=== PATIENT | male | born 1950 | race Caucasian/White ===

== ENCOUNTER 2017-06-19 18:51 | Inpatient (IN) | payer OTHER ==
[~2017-06-19] VITALS: Ht 182.9 cm; Wt 90.0 kg
[~2017-06-19 18:51] MED LIST: ALDACTONE100 MG PO; ALDACTONE25 MG PO; Atarax,Vistaril PO; Ativan IV; CHRONULAC,CEPHU30 ML PO; COMPAZINE10 MG PO; DIPHENHYDRAMINE50 M1 PO; Folvite PO; GENERLAC10 GM/15 M; HYDROXYZINE PAM50 MG PO; INDERAL10 MG PO; INDERAL20 MG PO; KENALOG,ARISTOC80 GM TP; LODINE400 MG PO; Lactulose PO; Lovenox SC; NACL IV; OMEPRAZOLE20 MG PO; PAIN PILL; PRILOSEC40 MG PO; PROPRANOLOL HCL10 MG PO; Protonix PO; QUETIAPINE FUM100 MG PO; SEROQUEL100 MG PO; SEROQUEL12.5 MG PO; SPIRONOLACTONE100 MG PO; SPIRONOLACTONE25 MG PO; TRAZODONE HCL50 MG PO; Theragran PO; Thiamine,Vitamin B1 PO; Ultram PO; XIFAXAN550 MG PO; [UNRECOGNIZED DRUG - OTHER] IV
[2017-06-19 20:15] LABS: HEMATOCRIT 43.9 % (38.0-50.0); MCH 34.3 PG (29.0-34.0); MCHC 35.8 G/DL (30.0-36.0); MCV 95.9 FL (86-99); MEAN PLAT.VOLUME 9.3 uM^3 (9.0-12.4); PLATELET COUNT 157 K/uL (156-360); RBC DIS.WIDTH-CV 13.6 % (11.8-14.6); RBC DIS.WIDTH-SD 47.9 % (39-53); RED BLOOD COUNT 4.58 M/uL (4.00-5.50)
[2017-06-19 20:39] LABS: CHLORIDE 101 mEq/L (99-109); POTASSIUM 4.8 mEq/L (3.7-5.4); SODIUM 140 mEq/L (136-147)
[2017-06-19 20:41] LABS: GLUCOSE 80 mg/dL (70-99)
[2017-06-19 20:42] LABS: ANION GAP 26 MEQ/L (2-14)
[2017-06-19 20:43] LABS: TOTAL BILIRUBIN 0.5 mg/dL (0.0-1.0)
[2017-06-19 20:44] LABS: ALKALINE PHOSPHATASE 90 IU/L (3-129)
[2017-06-19 20:45] LABS: GFR ESTIMATE (CALCULATED) 50 mL/min/
[2017-06-19 20:46] LABS: UREA NITROGEN (BUN) 29 mg/dL (9-23)
[2017-06-19 20:48] LABS: LIPASE 961 U/L (1.0-51.0)
[2017-06-20] MEDS ORDERED: TACROLIMUS ANHYD1 MG PO ×2 (00:08→17:41)
[2017-06-20] MEDS ORDERED: LO-DOSE ASPIRIN81 M2 PO (00:09)
[2017-06-20] MEDS ORDERED: CARDIZEM CD120 M1 PO (00:09)
[2017-06-20] MEDS ORDERED: ONE-A-DAY ESSE1 EAC1 PO (00:09)
[2017-06-20] MEDS ORDERED: OMEPRAZOLE20 MG PO (00:09)
[2017-06-20] MEDS ORDERED: IRON325 M1 PO (00:10)
[2017-06-20 06:22] LABS: BASOPHIL COUNT 0.1 K/uL (0-0.1); EOSINOPHIL (%) 0.8 % (0-5); EOSINOPHIL COUNT 0.1 K/uL (0-0.3); HEMATOCRIT 39.7 % (38.0-50.0); IMMATURE GRANULOCYTE (%) 0.8 % (0.0-0.7); IMMATURE GRANULOCYTE COUNT 0.1 K/uL; INSTRUMENT ABS NEUTROPHIL CT 4.2 K/uL; MCHC 35.5 G/DL (30.0-36.0); MCV 95.7 FL (86-99); MEAN PLAT.VOLUME 9.3 uM^3 (9.0-12.4); MONOCYTE (%) 10.3 % (3-12); MONOCYTE COUNT 0.6 K/uL (0-0.8); NEUTROPHIL (%) 71.3 % (45-76); NEUTROPHIL COUNT 4.2 K/uL (1.8-6.4); PLATELET COUNT 132 K/uL (156-360); RBC DIS.WIDTH-CV 13.7 % (11.8-14.6); RBC DIS.WIDTH-SD 47.7 % (39-53); RED BLOOD COUNT 4.15 M/uL (4.00-5.50); WHITE BLOOD COUNT 5.9 K/uL (4.1-10.2)
[2017-06-20 07:38] LABS: CHLORIDE 106 mEq/L (99-109); POTASSIUM 4.3 mEq/L (3.7-5.4); SODIUM 140 mEq/L (136-147)
[2017-06-20 07:40] LABS: GLUCOSE 61 mg/dL (70-99)
[2017-06-20 07:41] LABS: ANION GAP 20 MEQ/L (2-14)
[2017-06-20 07:43] LABS: ALKALINE PHOSPHATASE 80 IU/L (3-129)
[2017-06-20 07:44] LABS: GFR ESTIMATE (CALCULATED) > 59 mL/min/
[2017-06-20 07:45] LABS: TOTAL BILIRUBIN 0.7 mg/dL (0.0-1.0)
[2017-06-20 08:12] LABS: UREA NITROGEN (BUN) 25 mg/dL (9-23)
[2017-06-20 12:08] VITALS: BP 149/94
[2017-06-20 12:36] LABS: POINT-OF-CARE METER ID UU13113747
[2017-06-20 14:30] VITALS: BP 151/91
[2017-06-20 16:48] LABS: ADD MIUA? YES; BILIRUBIN NEGATIVE; BLOOD NEGATIVE; COLOR YELLOW ((YELLOW)); GLUCOSE (STRIP) NEGATIVE; KETONES 80; LEUKOCYTES NEGATIVE; NITRITE NEGATIVE; PROTEIN (STRIP) 30; UROBILINOGEN 0.2 MG/DL (0.2-1.0)
[2017-06-20 17:41] LABS: BACTERIA NONE SEEN /HPF; EPITHELIAL CELLS NONE SEEN /HPF; HYALINE CASTS 0-5 /LPF; MUCUS TRACE /LPF; RED BLOOD CELLS 0-5 /HPF (0-5); WHITE BLOOD CELLS 0-5 /HPF (0-5)
[2017-06-20] MEDS ORDERED: CARTIA XT240 MG PO (17:41)
[2017-06-20] MEDS ORDERED: LOSARTAN POTASS25 MG PO (17:41)
[2017-06-20 18:49] LABS: ANION GAP 17 MEQ/L (2-14); CHLORIDE 104 MEQ/L (99-109); GFR ESTIMATE (CALCULATED) > 59 mL/min/; POTASSIUM 3.9 MEQ/L (3.7-5.4); SAMPLE HEMOLYSIS CHECK 0; SAMPLE ICTERIC CHECK 0; SAMPLE LIPEMIA CHECK 0; SODIUM 138 MEQ/L (136-147); UREA NITROGEN (BUN) 22 mg/dL (9-23)
[2017-06-20 18:50] LABS: GLUCOSE 157 mg/dL (70-99)
[2017-06-20 19:53] LABS: C DIFF TOXIN POSITIVE (NEGATIVE)
[2017-06-20 20:01] VITALS: BP 158/83
[2017-06-20 20:25] LABS: PROBE CHECK PASS
[2017-06-20 23:21] VITALS: BP 153/80
[2017-06-21 03:57] VITALS: BP 148/85
[2017-06-21 06:33] LABS: ANION GAP 10 MEQ/L (2-14); CHLORIDE 107 MEQ/L (99-109); GFR ESTIMATE (CALCULATED) > 59 mL/min/; GLUCOSE 134 mg/dL (70-99); MAGNESIUM 1.6 mg/dl (1.3-2.7); POTASSIUM 3.8 MEQ/L (3.7-5.4); SAMPLE HEMOLYSIS CHECK 0; SAMPLE ICTERIC CHECK 0; SAMPLE LIPEMIA CHECK 0; SODIUM 140 MEQ/L (136-147); UREA NITROGEN (BUN) 16 mg/dL (9-23)
[2017-06-21 06:35] LABS: EOSINOPHIL (%) 3.9 % (0-5); EOSINOPHIL COUNT 0.1 K/uL (0-0.3); HEMATOCRIT 35.4 % (38.0-50.0); IMMATURE GRANULOCYTE (%) 0.4 % (0.0-0.7); INSTRUMENT ABS NEUTROPHIL CT 1.3 K/uL; LYMPHOCYTE COUNT 0.6 K/uL (1.0-2.8); MCH 34.2 PG (29.0-34.0); MCHC 35.6 G/DL (30.0-36.0); MCV 96.2 FL (86-99); MONOCYTE (%) 13.1 % (3-12); MONOCYTE COUNT 0.3 K/uL (0-0.8); NEUTROPHIL (%) 56.4 % (45-76); NEUTROPHIL COUNT 1.3 K/uL (1.8-6.4); NRBC (%) 1.3 /100 WBC (0-0); RBC DIS.WIDTH-CV 13.9 % (11.8-14.6); RBC DIS.WIDTH-SD 49.4 % (39-53); RED BLOOD COUNT 3.68 M/uL (4.00-5.50); WHITE BLOOD COUNT 2.3 K/uL (4.1-10.2)
[2017-06-21 06:47] LABS: MEAN PLAT.VOLUME 9.4 uM^3 (9.0-12.4); PLAT.SUFFICIENCY DECREASED
[2017-06-21 06:49] LABS: PLATELET COUNT 85 K/uL (156-360)
[2017-06-21 08:00] VITALS: BP 157/85
[2017-06-21 12:46] VITALS: BP 138/79
[2017-06-21 13:27] LABS: POINT-OF-CARE METER ID UU14188625
[2017-06-21 15:54] VITALS: BP 167/69
[2017-06-21 17:44] LABS: POINT-OF-CARE METER ID UU13113717
[2017-06-21 20:16] VITALS: BP 155/82
[2017-06-21 23:54] VITALS: BP 150/86
[2017-06-22 03:39] VITALS: BP 154/76
[2017-06-22 07:47] VITALS: BP 144/84
[2017-06-22 08:40] LABS: HEMATOCRIT 36.7 % (38.0-50.0); MCH 35.6 PG (29.0-34.0); MCHC 37.1 G/DL (30.0-36.0); MCV 96.1 FL (86-99); PLATELET COUNT 67 K/uL (156-360); RBC DIS.WIDTH-CV 13.8 % (11.8-14.6); RBC DIS.WIDTH-SD 48.1 % (39-53); RED BLOOD COUNT 3.82 M/uL (4.00-5.50)
[2017-06-22 08:59] LABS: ALKALINE PHOSPHATASE 62 IU/L (3-129); ANION GAP 8 MEQ/L (2-14); CHLORIDE 110 MEQ/L (99-109); GFR ESTIMATE (CALCULATED) > 59 mL/min/; POTASSIUM 3.5 MEQ/L (3.7-5.4); SAMPLE HEMOLYSIS CHECK 0; SAMPLE ICTERIC CHECK 0; SAMPLE LIPEMIA CHECK 0; SODIUM 142 MEQ/L (136-147); TOTAL BILIRUBIN 0.7 MG/DL (0.0-1.0); UREA NITROGEN (BUN) 7 mg/dL (9-23)
[2017-06-22 09:01] LABS: GLUCOSE 94 mg/dL (70-99)
[2017-06-22 09:08] LABS: WHITE BLOOD COUNT 1.9 K/uL (4.1-10.2)
[2017-06-22 10:03] LABS: EOSINOPHIL (%) 5.3 % (0-5); EOSINOPHIL COUNT 0.1 K/uL (0-0.3); IMMATURE GRANULOCYTE (%) 0.5 % (0.0-0.7); LYMPHOCYTE COUNT 0.5 K/uL (1.0-2.8); MONOCYTE (%) 13.3 % (3-12); MONOCYTE COUNT 0.3 K/uL (0-0.8); NEUTROPHIL (%) 50.6 % (45-76)
[2017-06-22 11:14] VITALS: BP 162/91
[2017-06-22 12:13] LABS: POINT-OF-CARE METER ID UU14188625
[2017-06-22 13:49] LABS: INTERNAL CONTROL VALID? YES
[2017-06-22 15:07] VITALS: BP 137/72
[2017-06-22 17:35] LABS: POINT-OF-CARE METER ID UU14188625
[2017-06-23] VITALS: BP 158/79
[2017-06-23 00:10] LABS: POINT-OF-CARE METER ID UU14188625
[2017-06-23 05:24] LABS: INTER. NORMALIZED RATIO 0.9; PROTHROMBIN TIME 9.6 SEC (10.2-12.9)
[2017-06-23 05:41] LABS: PTT 19.5 SEC (25-37)
[2017-06-23 05:58] LABS: POINT-OF-CARE METER ID UU13113717
[2017-06-23 07:45] VITALS: BP 122/79
[2017-06-23 08:30] LABS: ANION GAP 7 MEQ/L (2-14); CHLORIDE 110 MEQ/L (99-109); POTASSIUM 3.6 MEQ/L (3.7-5.4); SAMPLE HEMOLYSIS CHECK 0; SAMPLE ICTERIC CHECK 0; SAMPLE LIPEMIA CHECK 0; SODIUM 141 MEQ/L (136-147)
[2017-06-23 08:36] LABS: GFR ESTIMATE (CALCULATED) > 59 mL/min/; GLUCOSE 100 mg/dL (70-99); UREA NITROGEN (BUN) 7 mg/dL (9-23)
[2017-06-23 08:50] LABS: HEMATOCRIT 36.7 % (38.0-50.0); MCH 35.4 PG (29.0-34.0); MCHC 36.2 G/DL (30.0-36.0); MCV 97.6 FL (86-99); MEAN PLAT.VOLUME 9.8 uM^3 (9.0-12.4); PLATELET COUNT 66 K/uL (156-360); RBC DIS.WIDTH-CV 14.3 % (11.8-14.6); RBC DIS.WIDTH-SD 51.2 % (39-53); RED BLOOD COUNT 3.76 M/uL (4.00-5.50)
[2017-06-23] MEDS ORDERED: PRAZOSIN HCL1 MG PO (10:36)
[2017-06-23] MEDS ORDERED: MIRTAZAPINE30 MG PO (10:36)
[2017-06-23] MEDS ORDERED: VANCOMYCIN HCL125 MG PO (10:36)
[2017-06-23] MEDS ORDERED: FOLIC ACID1 MG PO (10:36)
== END 2017-06-23 13:20 | disposition home or self-care (01) | DRG 439 ==
LOC: EME 18:51 → 5SOUTH 06-20 01:55 → EDOF 06-20 01:55 → 5SOUTH 06-20 13:51
PROVIDERS: Hospitalist; Internal Medicine; Nurse Practitioner Adult Health; Physician Assistant; Student in an Organized Health Care Education/Training Program
DX: K85.20 Alcohol induced acute pancreatitis without necrosis or infection (principal); A04.7 Enterocolitis due to Clostridium difficile; N17.9 Acute kidney failure, unspecified; C25.3 Malignant neoplasm of pancreatic duct; D61.818 Other pancytopenia; E87.6 Hypokalemia; E83.42 Hypomagnesemia; E86.0 Dehydration; E87.2 Acidosis; Z94.4 Liver transplant status; K74.60 Unspecified cirrhosis of liver; R74.8 Abnormal levels of other serum enzymes; F10.239 Alcohol dependence with withdrawal, unspecified; B18.2 Chronic viral hepatitis C; I10 Essential (primary) hypertension; E78.5 Hyperlipidemia, unspecified; F34.1 Dysthymic disorder; F43.12 Post-traumatic stress disorder, chronic; J45.909 Unspecified asthma, uncomplicated; K21.9 Gastro-esophageal reflux disease without esophagitis; Z79.82 Long term (current) use of aspirin
CPT/HCPCS: 74176; 74183; 80048; 80048 91; 80053; 81003; 82272; 82948; 83690; 83735; 85025; 85027; 85610; 85730; 87040; 87493; 87506; 99281; 99285; C9113; J1644; J1885; J2405; J3411; J3475; J7030; J7507; S0030

== ENCOUNTER 2017-09-17 15:53 | Observation (INO) | payer OTHER ==
[~2017-09-17] VITALS: Ht 182.9 cm; Wt 87.7 kg
[~2017-09-17 15:53] MED LIST changes: +CARDIZEM CD120 M1 PO; +CARTIA XT240 MG PO; +FOLIC ACID1 MG PO; +IRON325 M1 PO; +LO-DOSE ASPIRIN81 M2 PO; +LOSARTAN POTASS25 MG PO; +MIRTAZAPINE30 MG PO; +ONE-A-DAY ESSE1 EAC1 PO; +PRAZOSIN HCL1 MG PO; +TACROLIMUS ANHYD1 MG PO; +VANCOMYCIN HCL125 MG PO
[2017-09-17 16:16] LABS: EOSINOPHIL (%) 1.9 % (0-5); EOSINOPHIL COUNT 0.1 K/uL (0-0.3); HEMATOCRIT 43.7 % (38.0-50.0); IMMATURE GRANULOCYTE (%) 0.6 % (0.0-0.7); INSTRUMENT ABS NEUTROPHIL CT 2.9 K/uL; LYMPHOCYTE COUNT 1.1 K/uL (1.0-2.8); MCH 33.1 PG (29.0-34.0); MCHC 35.9 G/DL (30.0-36.0); MCV 92.2 FL (86-99); MEAN PLAT.VOLUME 10.1 uM^3 (9.0-12.4); MONOCYTE (%) 11.6 % (3-12); MONOCYTE COUNT 0.5 K/uL (0-0.8); NEUTROPHIL (%) 61.4 % (45-76); NEUTROPHIL COUNT 2.9 K/uL (1.8-6.4); PLATELET COUNT 89 K/uL (156-360); RBC DIS.WIDTH-CV 12.2 % (11.8-14.6); RBC DIS.WIDTH-SD 41.2 % (39-53); RED BLOOD COUNT 4.74 M/uL (4.00-5.50); WHITE BLOOD COUNT 4.7 K/uL (4.1-10.2)
[2017-09-17 16:24] LABS: CHLORIDE 106 mEq/L (99-109); SODIUM 141 mEq/L (136-147)
[2017-09-17 16:25] LABS: MAGNESIUM 1.8 mg/dL (1.3-2.7)
[2017-09-17 16:26] LABS: GLUCOSE 95 mg/dL (70-99); INTER. NORMALIZED RATIO 1.1; PROTHROMBIN TIME 11.6 SEC (10.2-12.9)
[2017-09-17 16:28] LABS: ANION GAP 17 MEQ/L (2-14); TOTAL BILIRUBIN 0.4 mg/dL (0.0-1.0)
[2017-09-17 16:29] LABS: PTT 30.4 SEC (25-37)
[2017-09-17 16:30] LABS: ALKALINE PHOSPHATASE 75 IU/L (3-129); GFR ESTIMATE (CALCULATED) 54 mL/min/
[2017-09-17 16:31] LABS: UREA NITROGEN (BUN) 22 mg/dL (9-23)
[2017-09-17 16:33] LABS: CREATINE KINASE 24 IU/L (1-294); TOTAL CK 24 IU/L (1-294)
[2017-09-17 16:36] LABS: TROP-I INTERPRETATION NEGATIVE; TROPONIN-I < 0.01 ng/mL (0.0-0.30)
[2017-09-17 16:39] LABS: CK-MB 0.7 ng/mL (0.0-4.9)
[2017-09-17 18:24] LABS: SERUM ETHYL ALCOHOL < 10 mg/dL
[2017-09-17] MEDS ORDERED: PROBIOTIC1 EAC1 PO (18:50)
[2017-09-17 20:55] VITALS: BP 153/79
[2017-09-17 22:15] LABS: TROP-I INTERPRETATION NEGATIVE; TROPONIN-I 0.01 ng/mL (0.0-0.30)
[2017-09-17 22:51] VITALS: BP 141/76
[2017-09-18 03:04] VITALS: BP 157/97
[2017-09-18 03:35] LABS: ADD MIUA? NO; BILIRUBIN NEGATIVE; BLOOD NEGATIVE; COLOR YELLOW ((YELLOW)); GLUCOSE (STRIP) NEGATIVE; KETONES 20; LEUKOCYTES NEGATIVE; NITRITE NEGATIVE; PROTEIN (STRIP) NEGATIVE; SPECIFIC GRAVITY 1.015 (1.000-1.030); UCUL ADDED? NO; UROBILINOGEN 0.2 MG/DL (0.2-1.0)
[2017-09-18 03:46] LABS: AMPHETAMINE NEGATIVE (500 ng/mL); BARBITURATES NEGATIVE (200 ng/mL); BENZODIAZEPINES NEGATIVE (150 ng/mL); COCAINE NEGATIVE (150 ng/mL); INTERNAL CONTROLS VALID? YES; METHADONE NEGATIVE (200 ng/mL); METHAMPHETAMINE NEGATIVE (500 ng/mL); OPIATES (MORPHINE) NEGATIVE (100 ng/mL); OXYCODONE NEGATIVE (100 ng/mL); PHENCYCLIDINE NEGATIVE (25 ng/mL); PROPOXYPHENE NEGATIVE (300 ng/mL); THC CANNABINOIDS NEGATIVE (50 ng/mL); TRICYCLIC ANTIDEPRESSANTS NEGATIVE (300 ng/mL)
[2017-09-18 05:45] LABS: HEMATOCRIT 37.5 % (38.0-50.0); MCH 33.3 PG (29.0-34.0); MCHC 35.5 G/DL (30.0-36.0); MEAN PLAT.VOLUME 10.2 uM^3 (9.0-12.4); PLATELET COUNT 92 K/uL (156-360); RBC DIS.WIDTH-CV 12.4 % (11.8-14.6); RBC DIS.WIDTH-SD 42.6 % (39-53); RED BLOOD COUNT 3.99 M/uL (4.00-5.50); TROP-I INTERPRETATION NEGATIVE; TROPONIN-I 0.01 ng/mL (0.0-0.30); WHITE BLOOD COUNT 4.9 K/uL (4.1-10.2)
[2017-09-18 05:54] LABS: ALKALINE PHOSPHATASE 60 IU/L (3-129); ANION GAP 11 MEQ/L (2-14); CHLORIDE 104 MEQ/L (99-109); GFR ESTIMATE (CALCULATED) > 59 mL/min/; GLUCOSE 88 mg/dL (70-99); SAMPLE HEMOLYSIS CHECK 0; SAMPLE ICTERIC CHECK 0; SAMPLE LIPEMIA CHECK 0; SODIUM 138 MEQ/L (136-147); TOTAL BILIRUBIN 0.4 MG/DL (0.0-1.0); UREA NITROGEN (BUN) 22 mg/dL (9-23)
[2017-09-18 07:16] VITALS: BP 157/82
[2017-09-18 11:00] VITALS: BP 118/89
[2017-09-18] MEDS ORDERED: FOLIC ACID1 MG PO (13:24)
== END 2017-09-18 14:36 | disposition home or self-care (01) ==
LOC: EME 15:53 → 4EAST 18:17 → EDOF 18:17 → 4EAST 18:17 → ENRESERV 18:19 → 4EAST 20:11 → ENPENDDIS 09-18 → 4EAST 09-18 12:50
PROVIDERS: Emergency Medicine; Student in an Organized Health Care Education/Training Program
DX: I48.91 Unspecified atrial fibrillation (principal); W19.XXXA Unspecified fall, initial encounter; J93.9 Pneumothorax, unspecified; R41.82 Altered mental status, unspecified; Z94.4 Liver transplant status; F10.20 Alcohol dependence, uncomplicated; N17.9 Acute kidney failure, unspecified; F32.9 Major depressive disorder, single episode, unspecified; F41.9 Anxiety disorder, unspecified; J45.909 Unspecified asthma, uncomplicated; K21.9 Gastro-esophageal reflux disease without esophagitis; B18.2 Chronic viral hepatitis C; Z92.25 Personal history of immunosuppression therapy; S22.42XA Multiple fractures of ribs, left side, initial encounter for closed fracture; Z90.49 Acquired absence of other specified parts of digestive tract; Z79.82 Long term (current) use of aspirin; I10 Essential (primary) hypertension; Z79.01 Long term (current) use of anticoagulants; Z88.0 Allergy status to penicillin; Z88.8 Allergy status to other drugs, medicaments and biological substances
CPT/HCPCS: 70450; 71010; 71250; 80053; 80197 90; 81003; 82140; 82550; 82553; 83735; 84484; 85025; 85027; 85610; 85730; 87040; 93005; 99281; 99285; G0378; G0480; J2060; J7120

== ENCOUNTER 2017-10-07 08:59 | Inpatient (IN) | payer OTHER ==
[~2017-10-07] VITALS: Ht 182.9 cm; Wt 96.3 kg
[~2017-10-07 08:59] MED LIST changes: +PROBIOTIC1 EAC1 PO
[2017-10-07 09:41] LABS: EOSINOPHIL (%) 0.1 % (0-5); HEMATOCRIT 40.9 % (38.0-50.0); IMMATURE GRANULOCYTE (%) 0.6 % (0.0-0.7); INSTRUMENT ABS NEUTROPHIL CT 6.1 K/uL; LYMPHOCYTE COUNT 0.5 K/uL (1.0-2.8); MCHC 35.7 G/DL (30.0-36.0); MCV 92.5 FL (86-99); MEAN PLAT.VOLUME 9.8 uM^3 (9.0-12.4); MONOCYTE (%) 5.7 % (3-12); MONOCYTE COUNT 0.4 K/uL (0-0.8); NEUTROPHIL (%) 86.3 % (45-76); NEUTROPHIL COUNT 6.1 K/uL (1.8-6.4); PLATELET COUNT 69 K/uL (156-360); RBC DIS.WIDTH-CV 12.3 % (11.8-14.6); RED BLOOD COUNT 4.42 M/uL (4.00-5.50)
[2017-10-07 09:51] LABS: CHLORIDE 102 mEq/L (99-109); POTASSIUM 5.8 mEq/L (3.7-5.4); SODIUM 140 mEq/L (136-147)
[2017-10-07 09:52] LABS: GLUCOSE 174 mg/dL (70-99)
[2017-10-07 09:54] LABS: ANION GAP 23 MEQ/L (2-14)
[2017-10-07 09:56] LABS: GFR ESTIMATE (CALCULATED) 18 mL/min/
[2017-10-07 09:57] LABS: UREA NITROGEN (BUN) 38 mg/dL (9-23)
[2017-10-07 10:03] LABS: TROP-I INTERPRETATION NEGATIVE; TROPONIN-I < 0.01 ng/mL (0.0-0.30)
[2017-10-07 12:35] VITALS: BP 166/99
[2017-10-07 13:06] LABS: ADD MIUA? NO; BILIRUBIN NEGATIVE; BLOOD NEGATIVE; COLOR YELLOW ((YELLOW)); GLUCOSE (STRIP) NEGATIVE; KETONES 80; LEUKOCYTES NEGATIVE; NITRITE NEGATIVE; PROTEIN (STRIP) NEGATIVE; SPECIFIC GRAVITY 1.011 (1.000-1.030); UROBILINOGEN 0.2 MG/DL (0.2-1.0)
[2017-10-07 15:29] LABS: TROP-I INTERPRETATION NEGATIVE; TROPONIN-I 0.01 ng/mL (0.0-0.30)
[2017-10-07 15:59] VITALS: BP 150/89
[2017-10-07 17:22] LABS: UR CREATININE CONCENTRATION 200.1 MG/DL
[2017-10-07 19:23] VITALS: BP 188/101
[2017-10-07 22:06] LABS: TROP-I INTERPRETATION NEGATIVE; TROPONIN-I 0.02 ng/mL (0.0-0.30)
[2017-10-07 22:10] LABS: ANION GAP 20 MEQ/L (2-14); CHLORIDE 94 MEQ/L (99-109); GFR ESTIMATE (CALCULATED) 21 mL/min/; GLUCOSE 300 mg/dL (70-99); POTASSIUM 4.2 MEQ/L (3.7-5.4); SAMPLE HEMOLYSIS CHECK 0; SAMPLE ICTERIC CHECK 0; SAMPLE LIPEMIA CHECK 0; SODIUM 127 MEQ/L (136-147); UREA NITROGEN (BUN) 38 mg/dL (9-23)
[2017-10-07 23:20] VITALS: BP 184/100
[2017-10-08] VITALS (7 sets, daily range): BP systolic 135–180; BP diastolic 71–98
[2017-10-08 10:48] LABS: ANION GAP 16 MEQ/L (2-14); CHLORIDE 97 MEQ/L (99-109); POTASSIUM 4.3 MEQ/L (3.7-5.4); SAMPLE HEMOLYSIS CHECK 0; SAMPLE ICTERIC CHECK 0; SAMPLE LIPEMIA CHECK 0; SODIUM 133 MEQ/L (136-147); UREA NITROGEN (BUN) 29 mg/dL (9-23)
[2017-10-08 10:51] LABS: GFR ESTIMATE (CALCULATED) 30 mL/min/; GLUCOSE 105 mg/dL (70-99)
[2017-10-08] MEDS ORDERED: CYANOCOBALAM1000 MCG PO (11:22)
[2017-10-08] MEDS ORDERED: THIAMINE HCL100 MG PO (11:22)
[2017-10-08] MEDS ORDERED: PRAZOSIN HCL2 MG PO (11:23)
[2017-10-08] MEDS ORDERED: SEROQUEL200 MG PO (11:27)
[2017-10-09 03:58] VITALS: BP 117/58
[2017-10-09 06:58] LABS: EOSINOPHIL (%) 0.8 % (0-5); EOSINOPHIL COUNT 0.1 K/uL (0-0.3); HEMATOCRIT 32.4 % (38.0-50.0); IMMATURE GRANULOCYTE (%) 0.3 % (0.0-0.7); INSTRUMENT ABS NEUTROPHIL CT 4.7 K/uL; MCH 33.4 PG (29.0-34.0); MCV 90.3 FL (86-99); MEAN PLAT.VOLUME 10.6 uM^3 (9.0-12.4); MONOCYTE (%) 11.8 % (3-12); MONOCYTE COUNT 0.8 K/uL (0-0.8); NEUTROPHIL (%) 72.1 % (45-76); NEUTROPHIL COUNT 4.7 K/uL (1.8-6.4); PLATELET COUNT 87 K/uL (156-360); RBC DIS.WIDTH-CV 12.6 % (11.8-14.6); RBC DIS.WIDTH-SD 41.8 % (39-53); RED BLOOD COUNT 3.59 M/uL (4.00-5.50); WHITE BLOOD COUNT 6.5 K/uL (4.1-10.2)
[2017-10-09 07:22] LABS: ANION GAP 10 MEQ/L (2-14); CHLORIDE 102 MEQ/L (99-109); GFR ESTIMATE (CALCULATED) 36 mL/min/; GLUCOSE 94 mg/dL (70-99); POTASSIUM 3.8 MEQ/L (3.7-5.4); SAMPLE HEMOLYSIS CHECK 0; SAMPLE ICTERIC CHECK 0; SAMPLE LIPEMIA CHECK 0; SODIUM 137 MEQ/L (136-147); UREA NITROGEN (BUN) 24 mg/dL (9-23)
[2017-10-09 07:47] VITALS: BP 132/83
[2017-10-09 15:29] VITALS: BP 154/85
[2017-10-09 20:26] VITALS: BP 138/88
[2017-10-09 23:47] VITALS: BP 135/76
[2017-10-10 06:51] LABS: HEMATOCRIT 32.1 % (38.0-50.0); MCHC 35.8 G/DL (30.0-36.0); MEAN PLAT.VOLUME 10.2 uM^3 (9.0-12.4); PLATELET COUNT 86 K/uL (156-360); RBC DIS.WIDTH-CV 12.8 % (11.8-14.6); RBC DIS.WIDTH-SD 42.7 % (39-53); RED BLOOD COUNT 3.49 M/uL (4.00-5.50); WHITE BLOOD COUNT 4.3 K/uL (4.1-10.2)
[2017-10-10 07:27] LABS: ANION GAP 10 MEQ/L (2-14); CHLORIDE 105 MEQ/L (99-109); GFR ESTIMATE (CALCULATED) 43 mL/min/; GLUCOSE 82 mg/dL (70-99); POTASSIUM 3.2 MEQ/L (3.7-5.4); SAMPLE HEMOLYSIS CHECK 0; SAMPLE ICTERIC CHECK 0; SAMPLE LIPEMIA CHECK 0; SODIUM 140 MEQ/L (136-147); UREA NITROGEN (BUN) 17 mg/dL (9-23)
[2017-10-10 08:03] LABS: MAGNESIUM 1.1 mg/dl (1.3-2.7)
[2017-10-10 08:18] VITALS: BP 150/86
[2017-10-10 12:07] VITALS: BP 153/69
[2017-10-10 16:13] VITALS: BP 153/86
[2017-10-10 20:08] VITALS: BP 164/82
[2017-10-11 00:03] VITALS: BP 134/71
[2017-10-11 07:51] VITALS: BP 141/81
[2017-10-11 09:04] LABS: HEMATOCRIT 32.9 % (38.0-50.0); MCH 32.7 PG (29.0-34.0); MCHC 35.6 G/DL (30.0-36.0); MCV 91.9 FL (86-99); MEAN PLAT.VOLUME 10.4 uM^3 (9.0-12.4); PLATELET COUNT 98 K/uL (156-360); RBC DIS.WIDTH-CV 12.7 % (11.8-14.6); RBC DIS.WIDTH-SD 43.2 % (39-53); RED BLOOD COUNT 3.58 M/uL (4.00-5.50); WHITE BLOOD COUNT 3.4 K/uL (4.1-10.2)
[2017-10-11 09:29] LABS: ANION GAP 12 MEQ/L (2-14); CHLORIDE 106 MEQ/L (99-109); GFR ESTIMATE (CALCULATED) 54 mL/min/; GLUCOSE 81 mg/dL (70-99); MAGNESIUM 1.2 mg/dl (1.3-2.7); POTASSIUM 3.4 MEQ/L (3.7-5.4); SAMPLE HEMOLYSIS CHECK 0; SAMPLE ICTERIC CHECK 0; SAMPLE LIPEMIA CHECK 0; SODIUM 141 MEQ/L (136-147); UREA NITROGEN (BUN) 13 mg/dL (9-23)
[2017-10-11] MEDS ORDERED: PROTONIX40 MG PO (16:08)
[2017-10-11] MEDS ORDERED: ZANTAC300 MG PO (16:08)
[2017-10-11 17:41] VITALS: BP 166/87
[2017-10-11 19:38] VITALS: BP 194/94
[2017-10-11 23:59] VITALS: BP 144/82
[2017-10-12 03:41] VITALS: BP 169/84
[2017-10-12 06:32] LABS: HEMATOCRIT 35.8 % (38.0-50.0); MCH 32.1 PG (29.0-34.0); MCHC 34.9 G/DL (30.0-36.0); MCV 91.8 FL (86-99); MEAN PLAT.VOLUME 10.3 uM^3 (9.0-12.4); PLATELET COUNT 108 K/uL (156-360); RBC DIS.WIDTH-CV 12.6 % (11.8-14.6); RBC DIS.WIDTH-SD 42.4 % (39-53); WHITE BLOOD COUNT 3.5 K/uL (4.1-10.2)
[2017-10-12 07:02] LABS: ANION GAP 9 MEQ/L (2-14); CHLORIDE 103 MEQ/L (99-109); GFR ESTIMATE (CALCULATED) 59 mL/min/; GLUCOSE 77 mg/dL (70-99); SAMPLE HEMOLYSIS CHECK 0; SAMPLE ICTERIC CHECK 0; SAMPLE LIPEMIA CHECK 0; SODIUM 140 MEQ/L (136-147); UREA NITROGEN (BUN) 12 mg/dL (9-23)
[2017-10-12 07:42] VITALS: BP 155/86
== END 2017-10-12 09:35 | disposition home or self-care (01) | DRG 683 ==
LOC: DELPENDDIS → EME → EDBD 08:59 → EDOF 10:41 → 5SOUTH 10:41 → ENRESERV 10:42 → 5SOUTH 12:34 → ENPENDDIS 10-09 → 5SOUTH 10-12 09:35
PROVIDERS: Emergency Medicine; Internal Medicine; Physician Assistant Medical
PROC: 0DJ08ZZ Inspection of Upper Intestinal Tract, Via Natural or Artificial Opening Endoscopic (ICD-10-PCS; principal; 2017-10-11)
DX: N17.9 Acute kidney failure, unspecified (principal); K21.0 Gastro-esophageal reflux disease with esophagitis; R13.10 Dysphagia, unspecified; E87.2 Acidosis; E87.1 Hypo-osmolality and hyponatremia; E86.0 Dehydration; E87.6 Hypokalemia; E83.39 Other disorders of phosphorus metabolism; E83.42 Hypomagnesemia; R73.9 Hyperglycemia, unspecified; E87.5 Hyperkalemia; J45.909 Unspecified asthma, uncomplicated; I10 Essential (primary) hypertension; I48.91 Unspecified atrial fibrillation; R33.9 Retention of urine, unspecified; D69.6 Thrombocytopenia, unspecified; F43.10 Post-traumatic stress disorder, unspecified; F32.9 Major depressive disorder, single episode, unspecified; F41.9 Anxiety disorder, unspecified; Z79.82 Long term (current) use of aspirin; Z94.4 Liver transplant status; Z88.1 Allergy status to other antibiotic agents
CPT/HCPCS: 71010; 74220; 76770; 80048; 80048 91; 80069; 80197 90; 81003; 82436; 82550 91; 82570; 83735; 84100; 84156; 84300; 84484; 85025; 85027; 93005; 93306; 94799; 99281; 99285; C9113; J1885; J2250; J2270; J2405; J3475; J7040; J7042; J7120; J7507

== ENCOUNTER 2017-12-24 01:00 | Emergency (ER) | payer OTHER ==
[~2017-12-24] VITALS: Ht 182.9 cm; Wt 80.6 kg
[~2017-12-24 01:00] MED LIST changes: +CYANOCOBALAM1000 MCG PO; +PRAZOSIN HCL2 MG PO; +PROTONIX40 MG PO; +SEROQUEL200 MG PO; +THIAMINE HCL100 MG PO; +ZANTAC300 MG PO
[2017-12-24 06:00] VITALS: BP 124/81
== END 2017-12-24 06:40 | disposition home or self-care (01) ==
LOC: EME 01:00
PROC: 0HQ1XZZ Repair Face Skin, External Approach (ICD-10-PCS; principal; 2017-12-24)
DX: S02.2XXA Fracture of nasal bones, initial encounter for closed fracture (principal); S01.81XA Laceration without foreign body of other part of head, initial encounter; S46.001A Unspecified injury of muscle(s) and tendon(s) of the rotator cuff of right shoulder, initial encounter; W10.9XXA Fall (on) (from) unspecified stairs and steps, initial encounter; I10 Essential (primary) hypertension; B19.20 Unspecified viral hepatitis C without hepatic coma; K74.60 Unspecified cirrhosis of liver; Z79.82 Long term (current) use of aspirin; K72.90 Hepatic failure, unspecified without coma; F32.9 Major depressive disorder, single episode, unspecified; K21.9 Gastro-esophageal reflux disease without esophagitis; Z94.4 Liver transplant status; J45.909 Unspecified asthma, uncomplicated; Z88.1 Allergy status to other antibiotic agents; Z85.05 Personal history of malignant neoplasm of liver
CPT/HCPCS: 70450; 70486; 72125; 73030; 99281; 99284

== ENCOUNTER 2018-02-24 19:28 | Inpatient (IN) | payer OTHER ==
[~2018-02-24] VITALS: Ht 182.9 cm; Wt 80.3 kg
[2018-02-24 19:57] LABS: HEMATOCRIT 37.1 % (38.0-50.0); HEMOGLOBIN 13.1 G/DL (12.5-16.6); MCH 32.4 PG (29.0-34.0); MCHC 35.3 G/DL (30.0-36.0); MCV 91.8 FL (86-99); PLATELET COUNT 118 K/uL (156-360); RBC DIS.WIDTH-CV 12.7 % (11.8-14.6); RBC DIS.WIDTH-SD 42.9 % (39-53); RED BLOOD COUNT 4.04 M/uL (4.00-5.50); WHITE BLOOD COUNT 4.2 K/uL (4.1-10.2)
[2018-02-24 20:05] LABS: CHLORIDE 106 mEq/L (99-109); POTASSIUM 4.2 mEq/L (3.7-5.4); SODIUM 141 mEq/L (136-147)
[2018-02-24 20:07] LABS: GLUCOSE 186 mg/dL (70-99)
[2018-02-24 20:11] LABS: CREATININE 1.9 mg/dL (0.6-1.3); GFR ESTIMATE (CALCULATED) 38 mL/min/ (58.99-99999); UREA NITROGEN (BUN) 24 mg/dL (9-23)
[2018-02-24 20:52] LABS: TOTAL PROTEIN 7.6 g/dL (6.4-8.3)
[2018-02-24 20:53] LABS: TOTAL BILIRUBIN 0.2 mg/dL (0.0-1.0)
[2018-02-24 20:54] LABS: ALKALINE PHOSPHATASE 120 IU/L (3-129); SERUM ETHYL ALCOHOL < 10 mg/dL
[2018-02-24 20:57] LABS: AST (GOT) 12 IU/L (2-34); DIRECT BILIRUBIN 0.1 mg/dL (0.0-0.3)
[2018-02-24 20:58] LABS: ALT (GPT) < 3 IU/L (3-49)
[2018-02-24] MEDS ORDERED: REMERON15 M2 PO (22:40)
[2018-02-24] MEDS ORDERED: MINIPRESS1 MG PO (22:42)
[2018-02-25 00:08] LABS: APPEARANCE CLEAR ((CLEAR)); BILIRUBIN NEGATIVE; BLOOD NEGATIVE; COLOR YELLOW ((YELLOW)); GLUCOSE (STRIP) NEGATIVE; KETONES NEGATIVE; LEUKOCYTES NEGATIVE; NITRITE NEGATIVE; PROTEIN (STRIP) 30; SPECIFIC GRAVITY 1.018 (1.000-1.030); UCUL ADDED? NO; UROBILINOGEN 0.2 MG/DL (0.2-1.0)
[2018-02-25 01:09] LABS: MAGNESIUM 1.5 mg/dL (1.3-2.7)
[2018-02-25 02:52] VITALS: BP 144/90
[2018-02-25 05:43] LABS: BENZODIAZEPINES, URINE SCREEN Negative (200 ng/mL)
[2018-02-25 06:04] LABS: HEMATOCRIT 36.3 % (38.0-50.0); HEMOGLOBIN 12.6 G/DL (12.5-16.6); MCH 31.9 PG (29.0-34.0); MCHC 34.7 G/DL (30.0-36.0); MCV 91.9 FL (86-99); PLATELET COUNT 111 K/uL (156-360); RBC DIS.WIDTH-CV 12.7 % (11.8-14.6); RBC DIS.WIDTH-SD 42.5 % (39-53); RED BLOOD COUNT 3.95 M/uL (4.00-5.50); WHITE BLOOD COUNT 5.2 K/uL (4.1-10.2)
[2018-02-25 06:20] LABS: ALBUMIN 3.5 G/DL (3.2-4.8); ALKALINE PHOSPHATASE 98 IU/L (3-129); ALT (GPT) 4 IU/L (3-49); AST (GOT) 10 IU/L (2-34); CHLORIDE 108 MEQ/L (99-109); CREATININE 1.5 MG/DL (0.6-1.3); GFR ESTIMATE (CALCULATED) 49 mL/min/ (58.99-99999); POTASSIUM 4.3 MEQ/L (3.7-5.4); SODIUM 138 MEQ/L (136-147); TOTAL BILIRUBIN 0.3 MG/DL (0.0-1.0); UREA NITROGEN (BUN) 19 mg/dL (9-23)
[2018-02-25 06:24] LABS: GLUCOSE 92 mg/dL (70-99)
[2018-02-25 07:58] VITALS: BP 144/84
[2018-02-25 12:32] VITALS: BP 135/78
[2018-02-25 16:00] VITALS: BP 130/80; BP 147/67
[2018-02-25 19:21] VITALS: BP 119/77
[2018-02-25 23:46] VITALS: BP 114/72
[2018-02-26 03:44] VITALS: BP 117/76
[2018-02-26 06:50] LABS: ALBUMIN 3.3 G/DL (3.2-4.8); ALKALINE PHOSPHATASE 87 IU/L (3-129); ALT (GPT) 5 IU/L (3-49); AST (GOT) 10 IU/L (2-34); CHLORIDE 111 MEQ/L (99-109); CREATININE 1.5 MG/DL (0.6-1.3); DIRECT BILIRUBIN 0.1 mg/dL (0.0-0.3); GFR ESTIMATE (CALCULATED) 49 mL/min/ (58.99-99999); GLUCOSE 88 mg/dL (70-99); MAGNESIUM 1.5 mg/dl (1.3-2.7); POTASSIUM 4.6 MEQ/L (3.7-5.4); SODIUM 140 MEQ/L (136-147); TOTAL PROTEIN 6.1 G/DL (6.4-8.3); UREA NITROGEN (BUN) 21 mg/dL (9-23)
[2018-02-26 06:51] LABS: TOTAL BILIRUBIN 0.4 MG/DL (0.0-1.0)
[2018-02-26 07:08] VITALS: BP 125/80
[2018-02-26 10:58] VITALS: BP 140/81
[2018-02-26] MEDS ORDERED: CHLORDIAZEPOXID25 MG PO (12:08)
[2018-02-26] MEDS ORDERED: FAMOTIDINE20 MG PO (12:08)
[2018-02-26] MEDS ORDERED: LEVETIRACETAM500 MG PO (12:08)
== END 2018-02-26 18:13 | disposition home or self-care (01) | DRG 101 ==
LOC: DELPENDDIS → EME 19:28 → EDOF 22:13 → ENRESERV 22:14 → CANRESERV 22:32 → EDOF 02-25 00:07 → 5SOUTH 02-25 00:07 → EDOF 02-25 00:07 → ENRESERV 02-25 00:10 → 5SOUTH 02-25 02:13 → ENPENDDIS 02-26 12:28 → 5SOUTH 02-26 18:13
PROVIDERS: Emergency Medicine; Internal Medicine; Physician Assistant
DX: R56.9 Unspecified convulsions (principal); E72.20 Disorder of urea cycle metabolism, unspecified; F10.10 Alcohol abuse, uncomplicated; N17.9 Acute kidney failure, unspecified; I12.9 Hypertensive chronic kidney disease with stage 1 through stage 4 chronic kidney disease, or unspecified chronic kidney disease; N18.2 Chronic kidney disease, stage 2 (mild); I48.0 Paroxysmal atrial fibrillation; F43.10 Post-traumatic stress disorder, unspecified; K21.9 Gastro-esophageal reflux disease without esophagitis; F32.9 Major depressive disorder, single episode, unspecified; Y90.0 Blood alcohol level of less than 20 mg/100 ml; Z79.82 Long term (current) use of aspirin; Z85.05 Personal history of malignant neoplasm of liver; Z94.4 Liver transplant status; Z88.0 Allergy status to penicillin
CPT/HCPCS: 70450; 70551; 71046; 80048; 80053; 80076; 80197 90; 80306 90; 81003; 82140; 83735; 85027; 93005; 95819; 99281; 99285; G0378; G0480; J1953; J7030; J7050; J7507